=== PATIENT | female | born 1995 | race African-American/Black ===

== ENCOUNTER 2024-06-02 09:55 | Inpatient (IN) | payer MEDICAID, SELFPAY ==
[2024-06-02] VITALS (18 sets, daily range): BP systolic 98–113; BP diastolic 55–78; PULSE 60–99; RESP 16–17; TEMP 36.9–37.4; O2SAT 98–100; BMI 23.8
[2024-06-02 09:52] LABS: ROM Internal Control Test YES-OK TO RESULT pt. (Internal QC)
[2024-06-02 09:56] LABS: ROM Patient Test POSITIVE (Negative)
--- NOTE | 2024-06-02 10:11 | PCM.HP.OB ---
HPI - General HPI Narrative AUSTIN KLEIN, is a 29 F who presents at 40w2d in active labor at term. . This am PROM at 0745 and then contractions began. Large amount of clear fluid. course uncomplicated. Maternal Data Information VIVIANA Calculator Estimated Delivery Date Method Current WG Current Estimate 05/31/24 Manual 40w 2d PFSH PFSH Home Medications ?Medication ?Instructions ?Recorded ?Last Taken ?Type PNV#14-iron [id number]#[id number] 1 cap PO DAILY 06/02/24 06/01/24 History 27 mg iron-1 mg-300 mg-50 mg capsule aspirin 81 mg chewable tablet 81 mg PO DAILY 06/02/24 06/01/24 History (Aspirin Childrens) Allergy/AdvReac Type Severity Reaction Status Date / Time No Known Allergies Allergy Verified 06/02/24 09:38 NST FHR Rate Baby A Baseline: 145 Variability:: Moderate Accelerations:: 15 x 15 Decelerations:: None FHR Category:: Category I Uterine Activity:: every 3-5 minutes Vital Signs Vital Signs Vital Signs: 06/02/24 09:43 06/02/24 09:43 06/02/24 09:43 Temperature Temperature Source Pulse Rate 82 Respiratory Rate Blood Pressure 113/75 BP Systolic 113 BP Diastolic 75 Pulse Ox 98 06/02/24 09:43 06/02/24 09:43 06/02/24 09:43 Temperature 99.3 F H Temperature Source Temporal Pulse Rate Respiratory Rate 16 Blood Pressure BP Systolic BP Diastolic Pulse Ox Weight Weight: 166 lb Body Mass Index (BMI) 23.8 Physical Exam Const alert and oriented x3 General Appearance: cooperative Orientation / Consciousness: awake, oriented to person, oriented to place and oriented to time Exam Limitations: no limitations HEENT normocephalic Head and Scalp: normal to inspection, normocephalic and atraumatic Face and Sinus: normal facial exam Eyes General Eye: normal appearance of both eyes Neck full ROM Chest Chest: symmetrical chest wall rise Resp normal respiratory effort and normal air movement Auscultation: clear to auscultation bilaterally Cardio regular rate, regular rhythm, S1 normal heart sound, S2 normal heart sound, no murmurs, no rub, no gallops and no clicks GI normal to inspection, nondistended, normoactive bowel sounds and non-tender appearance of the vagina normal Bladder / Kidney Exam: no CVA tenderness Manual OB Exam: estimated gestational size appropriate, presentation cephalic, dilated 4cm, effaced 70%, station -1 and other Clear fluid Back/Spine normal ROM Extremity normal to inspection and full ROM Skin no rashes or lesions noted Neuro oriented x3, CN's II-XII intact bilaterally and moves all extremities Sensorium / Orientation: awake, alert and oriented to person Motor Exam: clonus absent Deep Tendon Reflexes: Rt Patellar (L4): 2+ and Lt Patellar (L4): 2+ Labs Labs Labs: No Data to Display GBS negative 1hr GCT normal GC/CT negative RPR negative Rubella immune HBsAG negative Hep negative HIV negative B Positive Assessment & Plan (1) 40 weeks gestation of : (2) PROM (premature rupture of membranes): PLAN: Plan 1) Admit to labor and delivery 2) Routine labs 3) Continuous EFM until Category 1 FHT and then can be IA 4) Pain management upon request 5) Dr. Kaplan collaborative physician and notified of patient status, above assessment, and plan. 6) Interested in water labor and .
[2024-06-02 10:55] LABS: Absolute Lymphocyte Count 1.83 X10^3/uL (0.83-4.51); Absolute Neutrophil Count 7.2 X10^3/uL (2.0-7.7); Basophil# 0.05 X10^3/uL; Basophil% 0.5 % (0-1); Eosinophil# 0.29 X10^3/uL; Eosinophils% 2.9 % (0-5); Lymphocyte # 1.83 X10^3/ul (0.83-4.51); Lymphocyte % 18.2 % (19-41); Mean Corp Hgb Conc 32.4 g/dL (32-36); Mean Corpuscular Hgb 32.5 pg (27.0-32.0); Mean Corpuscular Volume 100.3 fL (81-99); Mean Platelet Vol. 9.9 fl (6.2-12.0); Monocyte% 6.9 % (0-10); NRBC Flagged by Analyzer 0 % (0-5); Neutrophil # 7.17 X10^3/uL (2.7-7.7); Neutrophil % 71.1 % (47-70); Platelet Count 284 K/mm3 (150-450); RBC Distribution Width CV 11.9 % (11.6-14.6); RBC Distribution Width SD 43.9 fl (35.1-43.9); Red Blood Count 3.69 M/mm3 (4.2-5.4); White Blood Count 10.1 K/mm3 (4.4-11.0)
[2024-06-03] VITALS (40 sets, daily range): BP systolic 93–130; BP diastolic 54–94; PULSE 78–181; RESP 16–18; TEMP 36.5–37.4; O2SAT 91–100
[2024-06-03] MEDS: Oxytocin 15 Units/NS 250ml 15 UNITS/250 ML IV.SOLN 83 UNITS IV (00:12)
[2024-06-03] MEDS: Oxytocin 10 UNITS/ML Vial IM (00:12)
--- NOTE | 2024-06-03 00:23 | EX.PCM.OBRPT ---
Assessment & Plan (1) (normal spontaneous vaginal delivery): COMMENT: waterbirth (2) First degree perineal laceration: (3) Lactating mother: Maternal Data Information VIVIANA Calculator Estimated Delivery Date Method Current WG Current Estimate 05/31/24 Manual 40w 3d Vaginal Delivery Maternal Presentation Maternal Presentation: Active Labor and Spontaneous Rupture of Membranes Operative Information Date of Procedure: 06/03/24 Pre-Operative Diagnosis: PROM, Active Labor at term Post-Operative Diagnosis: , first degree perineal laceration Surgery / Procedure Performed: Spontaneous Vaginal Delivery (Waterbirth) Type of Anesthesia: None Estimated Blood Loss: 500ml Time of Delivery: 00:03 Findings Description of Procedure: Progressed to complete with urge to push in tub. in water of viable female over first degree perineal laceration . APGARS 9,9 respectively. Infant head delivered with body immediately forthcoming. CANx1, delivered through. Placed on maternal abdomen, strong cry. Mouth and nares suctioned for secretions. Pitocin started for active 3rd stage management. Cord doubly clamped and cut by FOB after pulsations ceased, delayed cord clamping. Removed from tub and back to bed. Placenta delivered intact via ross, 3 vessel cord intact. Perineum inspected and revealed first degree perineal laceration. Repaired with 3.0 vicryl rapide without anesthesia per patient consent, one figure of eight stitch. Fundus firm and hemostasis achieved. EBL 500ml. Mom and baby stable, planning to breastfeed. Family bonding well. notified of delivery. Presentation: Vertex and TYLOR Amniotic Membrane Rupture Type: Spontaneous Amniotic Fluid Description: Clear Placental Delivery Description: Spontaneous Placenta Disposition: [facility] Cord Vessel Description: 3 Vessels Cord Entanglement: Around neck x 1, loose Nuchal Cord Compression: Without compression Infant A Gender: Female (1 minute): 9 (5 minute): 9 Delayed Cord Clamping: Yes Post Vaginal Delivery Medications Given After Delivery: IV Pitocin Episiotomy Description: None Laceration: Perineal Extension/lac and 1st degree Complication Complications: None
[2024-06-03] MEDS: Acetaminophen 500 MG Tablet 1000 MG PO (01:41)
--- NOTE | 2024-06-03 17:47 | NURSING ---
Dr. Tabor on the unit, made aware of patients HR and patient feeling fatigue. Dr. Frausto ordered a CBC now and to D/C the AM CBC
[2024-06-03 18:42] LABS: Absolute Lymphocyte Count 3.16 X10^3/uL (0.83-4.51); Absolute Neutrophil Count 13.9 X10^3/uL (2.0-7.7); Basophil# 0.05 X10^3/uL; Basophil% 0.3 % (0-1); Eosinophil# 0.09 X10^3/uL; Eosinophils% 0.5 % (0-5); Hematocrit 31.5 % (37-47); Hemoglobin 10.6 g/dL (12.0-15.0); Lymphocyte # 3.16 X10^3/ul (0.83-4.51); Lymphocyte % 16.8 % (19-41); Mean Corp Hgb Conc 33.7 g/dL (32-36); Mean Corpuscular Hgb 32.9 pg (27.0-32.0); Mean Corpuscular Volume 97.8 fL (81-99); Mean Platelet Vol. 9.5 fl (6.2-12.0); Monocyte# 1.53 X10^3/uL; Monocyte% 8.1 % (0-10); NRBC Flagged by Analyzer 0 % (0-5); Neutrophil # 13.85 X10^3/uL (2.7-7.7); Neutrophil % 73.6 % (47-70); POSITIVE DIFFERENTIAL YES; Platelet Count 281 K/mm3 (150-450); RBC Distribution Width CV 11.9 % (11.6-14.6); RBC Distribution Width SD 43.2 fl (35.1-43.9); Red Blood Count 3.22 M/mm3 (4.2-5.4); White Blood Count 18.8 K/mm3 (4.4-11.0)
[2024-06-03 18:46] LABS: Differential Indicated SCAN CRITERIA MET
[2024-06-03 19:16] LABS: Anisocytosis RARE; Macrocytosis RARE; Platelet Estimate ADEQUATE (ADEQ); Red Cell Morphology N CHROM NORMAL (NORM C&C)
--- NOTE | 2024-06-03 19:40 | NURSING ---
Dr. Tabor was updated on recent cbc, Hgb and WBC. Hilton stated patient is with in limits for a vagainal delivery and to just monitor HR
[2024-06-04 00:33] VITALS: BP 104/54; PULSE 88; RESP 16; TEMP 37.1
[2024-06-04 03:30] VITALS: BP 111/69; PULSE 102; RESP 18; TEMP 36.8; O2SAT 97
--- NOTE | 2024-06-04 08:26 | PN.OBGYN_ITS ---
Subjective Subjective Denies complaints Objective Data Objective Data Vital Signs: Vital Signs Temp Pulse Resp BP Pulse Ox O2 Del Method 98.2 F 102 H 18 111/69 97 Room Air 06/04/24 03:30 06/04/24 03:30 06/04/24 03:30 06/04/24 03:30 06/04/24 03:30 06/04/24 03:30 Oxygen Delivery Method Room Air Weight: 166 lb Body Mass Index (BMI) 23.8 Intake & Output: Intake and Output for Last 24 Hours 06/02/24 06/03/24 06/04/24 23:59 23:59 23:59 Intake Total 250 / 250 Output Total 1150 / 1150 Balance -900 / -900 Lab / Micro Data 06/03/24 18:30 Labs: Laboratory Results - last 24 hr 06/03/24 18:30: WBC 18.8 H, RBC 3.22 L, Hgb 10.6 L, Hct 31.5 L, MCV 97.8, MCH 32.9 H, MCHC 33.7, RDW Std Deviation 43.2, RDW Coeff of Chuy 11.9, Plt Count 281, MPV 9.5, Immature Gran % (Auto) 0.700, Neut % (Auto) 73.6 H, Lymph % (Auto) 16.8 L, [place] % (Auto) 8.1, Eos % (Auto) 0.5, Baso % (Auto) 0.3, Absolute Neuts (auto) 13.9 H, Absolute Lymphs (auto) 3.16, Nucleated RBC % 0, Differential Comment SEE COMMENT, Diff Path Review May foll, Platelet Estimate ADEQUATE, RBC Morphology N CHROM, Anisocytosis RARE, Macrocytosis RARE Physical Exam Const alert, oriented x3 and no apparent distress HEENT normocephalic GI soft to palpation, non-tender and non-distended GI Narrative: fundus firm, mid & below umbilicus Extremity normal to inspection and no calf tenderness Assessment & Plan (1) (normal spontaneous vaginal delivery): COMMENT: PPD#1 PLAN: Plan to d/c home later today
--- NOTE | 2024-06-04 08:29 | DS.PCM_ITS ---
Providers Date of Admission: 06/02/24 Primary Care Physician: No Primary Care Phys Reason For Visit: VAGINAL DELIVERY Diagnosis Discharge Diagnosis (1) (normal spontaneous vaginal delivery): Status: Acute Code(s): O80 - Encounter for full-term uncomplicated delivery Plan: Plan to d/c home later today Medications at Discharge Home Medications PNV#14-iron [id number] 27 mg iron-1 mg-300 mg-50 mg capsule 1 cap PO DAILY 06/02/24 aspirin 81 mg chewable tablet (Aspirin Childrens) 81 mg PO DAILY 06/02/24 Hospital Course Operations None Summary of Care Provided Minutes Spent on Discharge: 15 Physical Exam Const alert, oriented x3 and no apparent distress HEENT normocephalic GI soft to palpation, non-tender and non-distended GI Narrative: fundus firm, mid & below umbilicus Extremity normal to inspection and no calf tenderness Weight / BMI Weight Weight: 166 lb Body Mass Index (BMI) 23.8 ABG / Lab / Microbiology Data 06/03/24 18:30 Laboratory: Laboratory Results - last 24 hr 06/03/24 18:30: WBC 18.8 H, RBC 3.22 L, Hgb 10.6 L, Hct 31.5 L, MCV 97.8, MCH 32.9 H, MCHC 33.7, RDW Std Deviation 43.2, RDW Coeff of Chuy 11.9, Plt Count 281, MPV 9.5, Immature Gran % (Auto) 0.700, Neut % (Auto) 73.6 H, Lymph % (Auto) 16.8 L, [place] % (Auto) 8.1, Eos % (Auto) 0.5, Baso % (Auto) 0.3, Absolute Neuts (auto) 13.9 H, Absolute Lymphs (auto) 3.16, Nucleated RBC % 0, Differential Comment SEE COMMENT, Diff Path Review May foll, Platelet Estimate ADEQUATE, RBC Morphology N CHROM, Anisocytosis RARE, Macrocytosis RARE D/C Instructions Discharge Diet: No restrictions Discharge Activity: May Shower May resume sexual activity in: 6 weeks Weight Bearing Status: Weight bearing as tolerated Call your doctor if you observe: Fever of 101 or Higher, Coldness, Increased Pain, Change in Color, Inability to urinate, Inability to have a bowel movement, Using more than 1 pad per hour, Shortness of breath, Dizziness, Fainting spells, Chest pain, Increased palpitations (irregular heartbeat), Calf discomfort and Uncontrolled pain Please Follow Up With: Yamilka Powell CNM When: Follow up in 2 and 6 weeks for visits. Meaningful Use Info Meaningful Use Meaningful Use Diagnoses (Choose all that apply): None applicable Ischemic Stroke Statin Dosing Therapy Reference: STATIN DOSE THERAPY REFERENCE: * Patients > 75 years receive moderate or high dose statin therapy. * Patients 75 years or YOUNGER should receive HIGH intensity statin dose unless contraindicated. You will be required to document reason for non-treatment if statin daily dose does not meet guidelines. HIGH DOSE STATIN THERAPY DAILY Atorvastatin > than or = to 40 mg Rosuvastatin > than or = to 20 mg Amlodipine + Atorvastatin > than or = to 2.5/40 mg Ezetimibe + Simvastatin 10/80 mg Simvastatin 80mg Discharge Plan Admission Admit Date/Time: 06/02/24 09:55 Attending Provider: Yamilka Powell Primary Care Provider: Care Physician,Radhika Primary Discharge Orders/Prescriptions Prescriptions: No Action aspirin [Aspirin Childrens] 81 mg tablet,chewable 81 mg PO DAILY PNV #[id number] 27 mg iron-1 mg -300 mg-50 mg capsule 1 cap PO DAILY Referrals / Follow Up: Care Physician,No Primary [Primary Care Provider] - Disposition Disposition (needs filled in before D/C Order can be placed): Home, Self Care
[2024-06-04 08:50] VITALS: BP 108/69; PULSE 95; RESP 16; TEMP 37; O2SAT 100
[2024-06-04 14:41] LABS: Pathologist Review Reviewed
== END 2024-06-04 11:25 | disposition home or self-care (01) | DRG 560 ==
LOC: WPOUT 10:16 → WP 10:16
PROVIDERS: Obstetrics & Gynecology; Admitting Provider Advanced Practice Midwife; Visit Provider Advanced Practice Midwife
DX: O42.02 Full-term premature rupture of membranes, onset of labor within 24 hours of rupture (principal); Z37.0 Single live birth; O69.81X0 Labor and delivery complicated by cord around neck, without compression, not applicable or unspecified; O70.0 First degree perineal laceration during delivery; Z3A.40 40 weeks gestation of pregnancy
CPT/HCPCS: 36415; 59025; 59050; 84112; 85025; 86780; 86850; 86900; 86901; 99221; G0378